=== PATIENT | male | born 1965 | race Caucasian/White ===

== ENCOUNTER → 2023-11-11 12:56 | Day surgery (SDC) | payer OTHER, SELFPAY ==
[2023-11-11 13:12] VITALS: BP 177/87; BMI 26.9
[2023-11-11 13:24] VITALS: BP 177/87
[2023-11-11 13:41] LABS: Glucose - Point of Care 212 mg/dl (70-99)
[2023-11-11] MEDS: NSS 263 ML IV (13:54)
--- NOTE | 2023-11-11 14:56 | ITS.CL.CATH ---
Sales Account Director - Catheterization
Cardiac Catheterization
Procedure Report:
CARDIAC CATHETERIZATION REPORT
Date of Procedure: 11/11/2023
Referring: Alin Solis DO
Indication: Chest pain/abnormal stress test
HEMODYNAMIC DATA
AO: 137/68
LV: 137/14
LEFT VENTRICULOGRAPHY: Normal left ventricular wall motion with EF 61%
CORONARY ANGIOGRAPHY
Dominance: Right
Left Main: Normal
LAD: There are mild luminal irregularities throughout the LAD. 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 There is a endomyocardial bridge segment at the ostium of the major
diagonal branch with 60% systolic compression
Circumflex: The circumflex has 20% mid stenosis and a focal area of 40% distal stenosis past the takeoff of the small OM 3. OM1 and OM 2 are both large with mild luminal irregularities. The circumflex terminates with a single small to medium sized
left posterolateral branch
RCA: The RCA is dominant with mild luminal irregularities.
Closure Device: None-the procedure was performed via the right radial artery. The Raf's test was normal prior to the procedure.
Radiation (mGy): 206
DAP (cm2.Gy): 14.5
Fluoroscopy time: 2.9 minutes
CONCLUSIONS
1: Normal left ventricular function with EF 61%
2: Mild noncritical CAD
3. 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 These are considered incidental findings and are not considered pathological
4. Recommend continued aspirin and high intensity statin with goal LDL less than 70
Copy to: Alin Solis DO, Roxi Reese DO
Daniel Jean MD, [facility], [facility]
[2023-11-11 15:00] VITALS: BP 142/59
[2023-11-11 15:01] VITALS: BP 142/59
[2023-11-11 15:38] LABS: Glucose - Point of Care 208 mg/dl (70-99)
[2023-11-11] MEDS: NOVOLOG vial 0.0700000000000000067 UNITS SC (16:59)
[2023-11-11 17:47] VITALS: BP 133/57
== END | disposition home or self-care (01) ==
LOC: CATH 12:56
PROVIDERS: ATTENDING PHYSICIAN Internal Medicine Cardiovascular Disease; FAMILY PHYSICIAN Family Medicine; OTHER PHYSICIAN Internal Medicine Cardiovascular Disease
DX: I25.10 Atherosclerotic heart disease of native coronary artery without angina pectoris (principal); R07.9 Chest pain, unspecified; R94.39 Abnormal result of other cardiovascular function study; Q24.5 Malformation of coronary vessels
CPT/HCPCS: 82962; 93458; C1894; Q9967